=== PATIENT | female | born 1985 | race Caucasian/White ===

== ENCOUNTER 2017-12-08 14:04 | Inpatient (IN) | payer OTHER ==
[2017-12-08 15:14] LABS: PLATELET COUNT 97 10^3/uL (150-400)
[2017-12-08] MEDS ORDERED: BETAMETHASONE IM SYRINGE IM ONE (15:35)
[2017-12-08] MEDS ORDERED: MISOPROSTOL 200 MCG TAB PO PRN (16:44)
[2017-12-08] MEDS ORDERED: EPSOM SALT 454 GM TP PRN (16:44)
[2017-12-08] MEDS ORDERED: OXYTOCIN 20 UNIT in LR 1,000 ML IV PRN (16:44)
[2017-12-08] MEDS ORDERED: TERBUTALINE SULFATE 1 MG/ML VIAL IV PRN (16:44)
[2017-12-08] MEDS ORDERED: AMMONIA AROMATIC 1 EACH AMP IH PRN (16:44)
[2017-12-08] MEDS ORDERED: OLIVE OIL 118 ML BTL MISC PRN (16:44)
[2017-12-08] MEDS ORDERED: LR 500 ML IV PRN (16:48)
[2017-12-08] MEDS ORDERED: OLIVE OIL 118 ML BTL ONE (16:57)
[2017-12-08] MEDS ORDERED: LIDOCAINE 1% 300 MG/30 ML SDV ONE (16:57)
[2017-12-08] MEDS ORDERED: AMMONIA AROMATIC 1 EACH AMP IH ONE (16:58)
[2017-12-08] MEDS ORDERED: OXYTOCIN 10 UNIT/ML VIAL ONE (16:58)
[2017-12-08] MEDS ORDERED: TERBUTALINE SULFATE 1 MG/ML VIAL ONE (16:58)
[2017-12-08] MEDS ORDERED: MISOPROSTOL 200 MCG TAB ONE (16:58)
--- NOTE | 2017-12-08 16:59 | PDANEPAE ---
ANE Past Medical History - Cardiovascular History Hx Hypertension: No Hx Arrhythmias: No Hx Chest Pain: No Hx Coronary Artery / Peripheral Vascular Disease: No Hx CHF / Valvular Disease: No Hx Palpitations: No - Pulmonary History Hx COPD: No Hx Asthma/Reactive Airway Disease: No Hx Recent Upper Respiratory Infection: No Hx Oxygen in Use at Home: No Hx Sleep Apnea: No - Endocrine History Hx Diabetes: No Hypothyroid: No Hyperthyroid: No Obesity: no - Chronic Pain History Chronic Pain: No ANE Review of Systems Review of Systems: - Exercise capacity METS (RN): 5 METS ANE Patient History - Allergies Allergies/Adverse Reactions: Penicillins Allergy (Verified 05/29/14 18:15) - Anes Hx Anes Hx: no prior problems - Smoking Hx Smoking Status: Never smoked Marijuana use: No - Alcohol Use Alcohol Use: None - Family Anes Hx Family Anes Hx: neg - N/A ANE Labs/Vital Signs - Labs Result Diagrams: 12/08/17 14:35 - Vital Signs Height: 160.02 cm Weight: 60.781 kg ANE Physical Exam - Airway Neck exam: FROM Mallampati Score: Class 1 Mouth exam: normal dental/mouth exam - Pulmonary Pulmonary: no respiratory distress, no rales or rhonchi, clear to auscultation - Cardiovascular Cardiovascular: regular rate and rhythym, no murmur, rub, or gallop - ASA Status ASA Status: II ANE Anesthesia Plan Anesthesia Plan: epidural Total IV Anesthesia: No
[2017-12-08] MEDS ORDERED: OXYTOCIN 30 UNIT in NS 500 ML IV SCH (17:00)
[2017-12-08] MEDS ORDERED: LR 500 ML IV SCH (17:00)
[2017-12-08] MEDS ORDERED: fentaNYL 100 MCG/2 ML INJ ONE (17:02)
[2017-12-08] MEDS ORDERED: PHENYLEPHRINE HCL 100 MCG/ML SYR ONE (17:03)
[2017-12-08] MEDS: LR 1,000 ML IV PRN (17:09)
[2017-12-08] MEDS: CLINDAMYCIN 900 MG/DEXTROSE 50 ML IV SCH (17:13)
--- NOTE | 2017-12-08 17:27 | GHP ---
[f rep st] PREOP HISTORY AND PHYSICAL DATE OF ADMISSION: 12/08/2017 ADMITTING DIAGNOSIS: Intrauterine at 36-4/7 weeks' gestation with preeclampsia with severe features for induction of labor. HISTORY OF PRESENT ILLNESS: Patient is a 32-year-old 2, para 1-0-0-1, with a last menstrual period of 04/05/2017, and an EDC of 01/01/2018, which was confirmed by an 8-week ultrasound. She has had good care at [facility] since registration at 8 weeks' gestation. Her [facility] care is complicated by a history of severe preeclampsia, partial abruption at 38 weeks. The patie nt also had a hemorrhage that did not require a blood transfusion with that delivery. She has been on a baby aspirin this and been watched very carefully for signs and symptoms of preeclampsia. She was seen in the office on the at 36 and 3. Patient said she was not feeling very well. She had slight increased edema, was feeling dehydrated and tired, had trace protein on a urine dip and she had preeclampsia labs checked as a precaution. Significant findings in those labs were a platelet count of 100 and a uric acid of 9.0. Patient had a first trimester platelet count of 150 and had not had followup platelets done in this , so possible gestational thrombocytope josefa versus severe preeclampsia with HELLP syndrome. Patient was given precautions and had repeat lab s drawn on the and her platelets decreased to a count of 85. Uric acid remained elevated at 8.9 . Everything else remained stable. Patient was called and told to come to labor and delivery for ev aluation. Upon evaluation, patient reports feeling headaches, some episodes of scotomata, and overal l not feeling great. She has had good movement. No leakage of fluid. Mild contractions. Upo n presentation to labor and delivery, she had elevated blood pressures 148/92, 187/93. assessm ent was normal category 1. heart tones were in the 130s, reactive. Moderate variability categ ory 1. She had irregular contractions. Cervix on exam was 2, 80%, -2. PAST OBSTETRICAL HISTORY: In September 2015, she presented to labor and delivery at 38 weeks with heav y bleeding, suspected abruption. Patient was found to have severe preeclampsia at that time. She wa s augmented, had a spontaneous vaginal delivery and a hemorrhage. She was given medicatio ns and she responded well. She was treated with magnesium for 24 hours postop and did well. That wa s her only other . PAST GYNECOLOGICAL HISTORY: She had a normal menstrual triad with menarche at age 11, intervals ever y 26 days, length of 4 days and were regular. Last menstrual period of 03/26/2017, and they were try ing. SIGNIFICANT PAST MEDICAL HISTORY: None. PAST SURGICAL HISTORY: [place] teeth extraction and in 2003 she had a left breast fibroadenoma remove d and in 2014 a left breast biopsy. ALLERGIES: She is allergic to penicillin. MEDICATIONS: Include baby aspirin, vitamins. LABORATORY DATA: She is O-positive. Antibody negative. RPR nonreactive. Rubella immune. Hepatiti s negative. HIV negative. Baseline total protein was 371 on a 24-hour urine collection. Pap was no rmal. Gonorrhea and chlamydia normal. 1-hour GTT 92. GBS is pending. SOCIAL HISTORY: She is . She lives with her and her son. She works as a CPA. She d enies tobacco, alcohol, and drug use. FAMILY HISTORY: Maternal grandmother had chronic hypertension, thyroid dysfunction, melanoma. Pater nal grandfather also had skin and prostate cancer. Maternal grandmother has arthritis. Mother had k idney stones and that is all. REVIEW OF SYSTEMS: Currently negative except for pertinent positives as above in HPI. OBJECTIVE: VITAL SIGNS: Elevated blood pressure is 187/93, 148/92. GENERAL: Well-developed, well- nourished gravid female in no acute distress. LUNGS: Clear to auscultation bilaterally. HEART: Reg ular rate and rhythm with no murmur. ABDOMEN: Soft, gravid, nontender, nondistended. PELVIC: Feta l heart tones are 140s, reactive, moderate variability, category 1 contractions irregularly. Cervix is 2, 80%, -2 and cephalic. LABORATORY DATA: Repeat CBC today: White count 8.6, hemoglobin 13, hematocrit 39.5, platelets 97. No edema, DTRs are 2+, 2+. ASSESSMENT/PLAN: 32-year-old 2, para 1-0-0-1, at 36-4/7 weeks' gestation with preeclampsia w ith severe features. Patient is having an assessment with Maternal Medicine consultation as we speak. She is having an ultrasound for estimated weight and amniotic fluid index. Patient huerta s received a dose of betamethasone for lung maturity and we have an Anesthesia consultation pen ryan because patient will want an epidural prior to induction and because of her low platelet count, we want to have them have an opportunity to discuss this with her and the plan would be to proceed wi th induction of labor for preeclampsia with severe features and likely she will need magnesium postpa rtum. /[id number]/MODL
[2017-12-08] MEDS ORDERED: PHENYLEPHRINE HCL 100 MCG/ML SYR IVP PRN (17:47)
[2017-12-08] MEDS ORDERED: ONDANSETRON 4 MG/2 ML VIAL IVP PRN (17:47)
[2017-12-08] MEDS ORDERED: NALOXONE HCL 0.4 MG/ML INJ IVP PRN (17:47)
[2017-12-08] MEDS ORDERED: METOCLOPRAMIDE 10 MG/2 ML VIAL IVP PRN (17:47)
--- NOTE | 2017-12-08 17:47 | PREANESOB ---
Obstetric Pre-Anesthesia Info - General Info NPO Start Time: 17:46 : 2 Para: 0 VALERY: 01/01/18 Gestational Age: 36 week(s) and 4 day(s) - Info Monitors: External FHR Pattern: Reassuring - Labor Status PIH: Moderate Magnesium Sulfate in Use: No Indications for Labor Analgesia: BP Control, Induction of Labor, Pain Control Labor Epidural: Yes Anesthesia Allergies/Adverse Reactions: Allergy/AdvReac Type Severity Reaction Status Date / Time Penicillins Allergy Verified 05/29/14 18:15 Home Medications: Medication Instructions Recorded Ferrous Sulfate [Ferrous Sulf 325 325 mg PO BID #0 tab 10/21/15 MG (*)] Ibuprofen [Motrin (*)] 600 mg PO Q6 PRN #0 tab 10/21/15 Vit27&Calcium/Iron/FA 1 each PO DAILY #0 tab 10/21/15 [ Rx 1 Tablet (RX)] Visit Medications: Generic Name Dose Route Start Last Admin Trade Name Freq PRN Reason Stop Dose Admin Ammonia (Aromatic Spirit) 1 each 12/08/17 16:44 Ammonia Aromatic IH 12/18/17 16:43 ONCE PRN Fainting Lactated Ringer's 1,000 mls @ 0 mls/hr 12/08/17 16:44 12/08/17 17:09 Lr IV 12/09/17 16:43 1,000 mls PRN PRN Administration SEE PROTOCOL CONDITIONS Protocol Per Protocol Oxytocin 20 unit/ Lactated 1,002 mls @ 150 mls/hr 12/08/17 16:44 Ringer's IV PRN PRN Post- bleeding Clindamycin Phosphate/Dextrose 50 mls @ 100 mls/hr 12/08/17 17:30 12/08/17 17 :13 Cleocin 900 Mg (Premix) IV 01/07/18 17:29 50 mls Q8H EDER Administration Protocol Lactated Ringer's 500 mls @ 500 mls/hr 12/08/17 16:48 Lr IV 12/09/17 16:48 PRN PRN Maternal Hypotension Oxytocin 30 unit/ Sodium 503 mls @ 0 mls/hr 12/08/17 17:00 12/08/17 17:09 Chloride IV 06/06/18 16:59 503 mls CONT EDER Administration Protocol Per Protocol Lactated Ringer's 500 mls @ 0 mls/hr 12/08/17 17:00 Lr IV 06/06/18 16:59 CONT EDER As Directed Ibuprofen 600 mg 12/08/17 16:44 Motrin PO 06/06/18 16:43 Q6HRS PRN post , inflammation Magnesium Sulfate 454 gm 12/08/17 16:44 Epsom Salt TP 06/06/18 16:43 Q1H PRN perineal discomfort Misoprostol 800 - 1,000 mcg 12/08/17 16:44 Cytotec PO ONCE PRN Vaginal Atony/Bleeding [place] Oil 118 ml 12/08/17 16:44 Sweet Oil MISC 06/06/18 16:43 ONCE PRN perineal massage Terbutaline Sulfate 0.25 mg 12/08/17 16:44 Brethine IV 06/06/18 16:43 ONCE PRN Tachysystole Discontinued Medications Generic Name Dose Route Start Last Admin Trade Name Freq PRN Reason Stop Dose Admin Ammonia (Aromatic Spirit) Confirm 12/08/17 16:58 Ammonia Aromatic Administered 12/08/17 16:59 Dose 1 each IH .STK-MED ONE Betamethasone Acet/Betameth SodPhos 12 mg 12/08/17 15:35 12/08/17 15:47 Celestone Im Syringe IM 12/08/17 15:36 12 mg ONCE ONE Administration Ephedrine Sulfate Confirm 12/08/17 17:03 Ephedrine Sulfate Administered 12/08/17 17:04 Dose 50 mg .ROUTE .STK-MED ONE Fentanyl Confirm 12/08/17 17:02 Sublimaze Administered 12/08/17 17:03 Dose 100 mcg .ROUTE .STK-MED ONE Lidocaine HCl Confirm 12/08/17 16:57 Lidocaine Hcl 1% Administered 12/08/17 16:58 Dose 300 mg .ROUTE .STK-MED ONE Misoprostol Confirm 12/08/17 16:58 Cytotec Administered 12/08/17 16:59 Dose 1,000 mcg .ROUTE .STK-MED ONE [place] Oil Confirm 12/08/17 16:57 Sweet Oil Administered 12/08/17 16:58 Dose 118 ml .ROUTE .STK-MED ONE Oxytocin Confirm 12/08/17 16:58 Pitocin Administered 12/08/17 16:59 Dose 40 unit .ROUTE .STK-MED ONE Phenylephrine HCl Confirm 03/15/18 17:03 Neosynephrine Administered 12/08/17 17:04 Dose 1,000 mcg .ROUTE .STK-MED ONE Terbutaline Sulfate Confirm 12/08/17 16:58 Brethine Administered 12/08/17 16:59 Dose 1 mg .ROUTE .STK-MED ONE - Anesthesia History Response to Local Anesthetics: Normal Anesthesia & Operative History: No Prior Problems Family Anesthesia History: Negative - Social History Substance Use/Abuse: Denies - Vital Signs Height/Weight (Nursing): Height 160.02 cm Weight 60.781 kg - Focused Exam Neck exam: FROM Mallampati Score: Class 1 Mouth exam: normal dental/mouth exam Pulmonary: no respiratory distress, no rales or rhonchi, clear to auscultation Cardiovascular: regular rate and rhythym, no murmur, rub, or gallop Labs: 12/08/17 14:35 Patient ABO/Rh O POSITIVE 12/08/17 14:35 - Plan Consent Signed and on Chart: Yes Patient/Guardian Understands and Agrees to Plan: Yes Urgent/Emergent Case: Edmond clay completed preop but documented later for safe timely pt care
[2017-12-08] MEDS ORDERED: fentaNYL 2MCG/ML/BUP 0.1% RTU 100 ML EP SCH (18:00)
[2017-12-08] MEDS ORDERED: fentaNYL 200 MCG, BUPIVACAINE 0.5% 20 ML in NS 100 ML EP SCH (18:00)
[2017-12-08] MEDS ORDERED: MAGNESIUM SULF 4 GM/WATER 100 ML IV ONE (18:55)
[2017-12-08] MEDS ORDERED: CALCIUM GLUC 10% 1 GM/10 ML VIAL IVP PRN (18:55)
[2017-12-08 19:31] LABS: PLATELET COUNT 102 10^3/uL (150-400)
[2017-12-08] MEDS: Mag Sulf 500 ML IV SCH (19:59)
--- NOTE | 2017-12-08 20:28 | OBPROG ---
Labor Progress Note Assessment/Plan: Assessment: 32 y/o @ 36 4/7 weeks IOL secondary pre-eclampsia with severe features on MgSo4 Plan: Arom clear fluid, continue pitocin. Labs are stable platelets 102, creatine 0.8. Continue Mgso4 @ 2 g/hour and will carefully monitor UOP. 12/08/17 20:28 Subjective/Intrapartum Course: 12/08/17 20:24 Pt remains comfortable with her epidural not feeling contractions. She was slightly nauseous with the MgSo4 bolus but is feeling better now. Denies CARNEY, scotomata, or other pre-eclampsia symptoms. Objective: 12/08/17 19:05 12/08/17 19:05 Patient ABO/Rh O POSITIVE 12/08/17 14:35 Uric Acid 9.1 mg/dL (2.5-6.8) H 12/08/17 19:05 Total Bilirubin 0.4 mg/dL (0.1-1.4) 12/08/17 19:05 Conjugated Bilirubin 0.3 mg/dL (0.0-0.5) 12/08/17 19:05 Unconjugated Bilirubin 0.1 mg/dL (0.0-1.1) 12/08/17 19:05 AST 36 IU/L (14-46) 12/08/17 19:05 ALT 33 IU/L (9-52) 12/08/17 19:05 Lactate Dehydrogenase 448 IU/L (313-618) 12/08/17 19:05 - SVE Dilation (cm): 4 Effacement (%): 80 Station: -1 Membranes: AROM Amniotic Fluid Color: Clear - Contraction Pattern Assessment Current Contraction Pattern: Regular (Q 3-4) - FHR Assessment Rodriguez FHR (bpm): 140 FHR Pattern Variability: Moderate FHR Category: 1 - Procedures Non-surgical Procedures: Amniotomy - AP Antepartum Course: 12/08/17 20:26 H/o pre-eclampsia with placental abruption and PPH. Delivered @ 38 weeks Oxytocin Orders Assessment - Pre-Induction/Augmentation Assessment Gestational Age: 36 week(s) and 4 day(s) ICD10 Worksheet Patient Problems: Problems Problem Status Onset Pre-eclampsia during in third trimester, antepartum Acute
[2017-12-09] MEDS ORDERED: HYDROCODONE/APAP 5/325 TAB PO PRN (00:15)
[2017-12-09] MEDS ORDERED: HYDROCORTISONE 0.5% CREAM TP PRN (00:15)
[2017-12-09] MEDS ORDERED: ACETAMINOPHEN 325 MG TAB PO PRN (00:15)
[2017-12-09] MEDS ORDERED: SIMETHICONE 80 MG TAB CHEW PO PRN (00:15)
--- NOTE | 2017-12-09 00:19 | OBDEL ---
Info Type: Vaginal Presentation at Delivery: Vertex L&D Analgesia/Anesthesia Type: Epidural GBS+: Yes (unknown 36 weeks) Antibiotic Used for + GBS: Clindamycin Intrapartum Medications: Generic Name Dose Route Start Last Admin Trade Name Freq PRN Reason Stop Dose Admin Lactated Ringer's 1,000 mls @ 0 mls/hr 12/08/17 16:44 12/08/17 17:09 Lr IV 12/09/17 16:43 1,000 mls PRN PRN Administration SEE PROTOCOL CONDITIONS Protocol Per Protocol Clindamycin Phosphate/Dextrose 50 mls @ 100 mls/hr 12/08/17 17:30 12/08/17 17 :13 Cleocin 900 Mg (Premix) IV 01/07/18 17:29 50 mls Q8H EDER Administration Protocol Oxytocin 30 unit/ Sodium 503 mls @ 0 mls/hr 12/08/17 17:00 12/08/17 17:09 Chloride IV 06/06/18 16:59 503 mls CONT EDER Administration Protocol Per Protocol Magnesium Sulfate 500 mls @ 50 mls/hr 12/08/17 19:00 12/08/17 19:59 Magnesium Sulfate 20 Gm/ 500 Ml (Premix) IV 06/06/18 18:59 500 mls CONT EDER Administration Discontinued Medications Generic Name Dose Route Start Last Admin Trade Name Melecio PRN Reason Stop Dose Admin Betamethasone Acet/Betameth SodPhos 12 mg 12/08/17 15:35 12/08/17 15:47 Celestone Im Syringe IM 12/08/17 15:36 12 mg ONCE ONE Administration Magnesium Sulfate 100 mls @ 200 mls/hr 12/08/17 18:55 12/08/17 19:24 Magnesium Sulf 4 Gm (Premix) IV 12/08/17 19:24 100 mls ONCE ONE Administration - Infant Care Provider Coordinator Of Library Services/VOIP NETWORK TECHNICIAN: Elvia Mariano - Hospital Course Intrapartum: 12/08/17 20:24 Pt remains comfortable with her epidural not feeling contractions. She was slightly nauseous with the MgSo4 bolus but is feeling better now. Denies CARNEY, scotomata, or other pre-eclampsia symptoms. Indications for Delivery: Preeclampsia Severe Vaginal Delivery - Delivery Provider Delivery Physician/CNM: Patricia Ricardo - Labor and Delivery Onset of Contractions Date: 12/08/17 Onset of Contractions Time: 21:43 Onset of Contractions Type: Induced Rupture of Membranes Date: 12/08/17 Rupture of Membranes Time: 20:21 Rupture of Membranes Type: Artificial Amniotic Fluid Color: Clear Dilation Complete Date: 12/08/17 Dilation Complete Time: 23:26 Placenta Delivery Date: 12/08/17 Placenta Delivery Time: 23:39 Total Hours of Labor: 1 Non-surgical Procedures: Amniotomy Laceration: 1st Degree Repair: 3-0, Vicryl Vaginal Sponge Count Correct: Yes Vaginal Needle Count Correct: Yes Vaginal Sweep Performed: Yes EBL: 200 Delivery Events: Nuchal Cord (loose x 2) - Medications Labor Augmentation/Induction Methods Used: Pitocin Labor Augmentation/Induction Indication: Other (Specify) (pre eclampsia with severe features @ 36 weeks) [place] Data VALERY: 01/01/18 Gestational Age: 36 week(s) and 5 day(s) Rodriguez Delivery Date: 12/08/17 Delivery Time: 23:34 Sex of : Male Score (1 Min): 8 Score (5 Min): 9 ICD10 Worksheet Patient Problems: Problems Problem Status Onset (spontaneous vaginal delivery) Acute Pre-eclampsia during in third trimester, antepartum Acute - ICD10 Problem Qualifiers (1) (spontaneous vaginal delivery)
--- NOTE | 2017-12-09 00:37 | POSTANESTH ---
Post Anesthetic Evaluation Cardiovascular Status: Normal, Stable Respiratory Status: Normal, Stable Level of Consciousness/Mental Status: Can Participate in Eval Pain Control: Adequate, Prn Tx Ordered Nausea/Vomiting Control: Adequate, Prn Tx Ordered Complications Possibly Related to Anesthesia: None Noted (epidural resolving normally, platelets adequate for removal of epid catheter (102k))
[2017-12-09] MEDS: LR 1,000 ML IV PRN (01:15)
[2017-12-09 01:58] LABS: PLATELET COUNT 92 10^3/uL (150-400)
[2017-12-09] MEDS ORDERED: BETAMETHASONE IM SYRINGE IM ONE (03:45)
[2017-12-09] MEDS: Mag Sulf 500 ML IV SCH (05:31)
[2017-12-09 08:24] LABS: PLATELET COUNT 104 10^3/uL (150-400)
[2017-12-09] MEDS: IBUPROFEN 600 MG TAB PO PRN ×3 (08:33→22:47)
--- NOTE | 2017-12-09 10:33 | OBPP ---
Progress Note Assessment/Plan: Assessment: 32 yo G2now P2 11 hours s/p - in the setting of induction for preeclampsia with severe features. Good urine output. No signs of magnesium toxicity. PIH labs stable. Plan: Will continue Magsulfate for 24 hours after delivery. Will stop serial PIH labs, as stable. NPO except for sips of water and ice chips while on Magsulfate. 12/09/17 10:27 Subjective/ Course: 12/09/17 10:33 Pt doing well, resting comfortably. Does have some blurry vision and cramping. No chest pain, no dyspnea. Objective: 12/09/17 07:40 12/09/17 07:40 Patient ABO/Rh O POSITIVE 12/08/17 14:35 Uric Acid 8.5 mg/dL (2.5-6.8) H 12/09/17 07:40 Total Bilirubin 0.4 mg/dL (0.1-1.4) 12/09/17 07:40 Conjugated Bilirubin 0.2 mg/dL (0.0-0.5) 12/09/17 07:40 Unconjugated Bilirubin 0.2 mg/dL (0.0-1.1) 12/09/17 07:40 AST 34 IU/L (14-46) 12/09/17 07:40 ALT 34 IU/L (9-52) 12/09/17 07:40 Lactate Dehydrogenase 646 IU/L (313-618) H 12/09/17 07:40 gen - pleasant, NAD CV - RRR Chest - CTAB abd - soft, fundus firm and NT 6cm below umbilicus ext - 1+ edema BLE, 1+ DTRs, no clonus Uterine Position/Fundal Height: Umbilicus -3 Uterine Tone: Firm
[2017-12-09] MEDS: CLINDAMYCIN 900 MG/DEXTROSE 50 ML IV SCH (13:38)
--- NOTE | 2017-12-09 22:39 | OBPP ---
Progress Note Assessment/Plan: Assessment: 32 yo G2now P2 11 hours s/p - in the setting of induction for preeclampsia with severe features. Good urine output. No signs of magnesium toxicity. PIH labs stable. Plan: Will continue Magsulfate for 24 hours after delivery. Will stop serial PIH labs, as stable. NPO except for sips of water and ice chips while on Magsulfate. 12/09/17 10:27 12/09/17 22:39 32yo almost 24 hours s/p after IOL for preeclampsia with severe features. Mag level earlier this afternoon was 8.4 - was stopped for one hour, then restarted at 1gm/hour, and total fluids are running at 125ml/hour now. Urine output has decreased but is still adequate. Plan: DC Magsulfate at 2334 (24 hr s/p ), along with Payne catheter. May then resume a regular diet. Routine care. Subjective/ Course: 12/09/17 10:33 Pt doing well, resting comfortably. Does have some blurry vision and cramping. No chest pain, no dyspnea. 12/09/17 22:36 Doing well. Still feels magsulfate effects. This afternoon, felt very groggy, heavy and double vision. When Magsulfate was turned off for an hour, and then turned back on at 1gm/hour, felt a little better. No dyspnea, no chest pain. Still blurry vision. Is hungry. Objective: 12/09/17 07:40 12/09/17 07:40 Patient ABO/Rh O POSITIVE 12/08/17 14:35 Uric Acid 8.5 mg/dL (2.5-6.8) H 12/09/17 07:40 Total Bilirubin 0.4 mg/dL (0.1-1.4) 12/09/17 07:40 Conjugated Bilirubin 0.2 mg/dL (0.0-0.5) 12/09/17 07:40 Unconjugated Bilirubin 0.2 mg/dL (0.0-1.1) 12/09/17 07:40 AST 34 IU/L (14-46) 12/09/17 07:40 ALT 34 IU/L (9-52) 12/09/17 07:40 Lactate Dehydrogenase 646 IU/L (313-618) H 12/09/17 07:40 gen - pleasant, NAD, sitting up and baby CV - RRR chest - CTAB abd - soft, + BS, fundus firm u-5cm ext - SCDs on and running, 1+ pedal edema, no calf tenderness Urine output - per hour has varied from 50 to 300 earlier today. Most recently has been on the lower side Uterine Position/Fundal Height: Umbilicus -3 Uterine Tone: Firm
[2017-12-10] MEDS: IBUPROFEN 600 MG TAB PO PRN ×3 (05:42→17:15)
--- NOTE | 2017-12-10 08:20 | OBGCSDC ---
General Delivery Information - General Info : 2 Para: 1 Abortions: 0 Type: Vaginal L&D Analgesia/Anesthesia Type: Epidural Admission Date: 12/08/17 Labs: Patient ABO/Rh O POSITIVE 12/08/17 14:35 Hct 39.1 % (38.0-47.0) 12/09/17 07:40 - Hospital Course Antepartum: 12/08/17 20:26 H/o pre-eclampsia with placental abruption and PPH. Delivered @ 38 weeks Intrapartum: 12/08/17 20:24 Pt remains comfortable with her epidural not feeling contractions. She was slightly nauseous with the MgSo4 bolus but is feeling better now. Denies CARNEY, scotomata, or other pre-eclampsia symptoms. : Severe preeclampsia. Magnesium sulfate. Doing well post BP wnl 12/09/17 10:33 Pt doing well, resting comfortably. Does have some blurry vision and cramping. No chest pain, no dyspnea. 12/09/17 22:36 Doing well. Still feels magsulfate effects. This afternoon, felt very groggy, heavy and double vision. When Magsulfate was turned off for an hour, and then turned back on at 1gm/hour, felt a little better. No dyspnea, no chest pain. Still blurry vision. Is hungry. 12/10/17 08:17 Doing well. Denies difficulties. I feel better than the last delivery with magnesium sulfate. Vaginal - Delivery Provider Delivery Physician/CNM: Patricia Ricardo - Diagnosis Labor: Induced Rupture of Membranes Type: Artificial Amniotic Fluid Color: Clear Laceration: 1st Degree Repair: 3-0, Vicryl Delivery Events: Nuchal Cord (loose x 2) - Procedures Non-surgical Procedures: Amniotomy - Delivery Non-surgical Procedures: Amniotomy EBL: 200 Data VALERY: 01/01/18 Gestational Age: 36 week(s) and 6 day(s) Rodriguez Delivery Date: 12/08/17 Delivery Time: 23:34 Sex of : Male Weight (gm): 2702 g Score (1 Min): 8 Score (5 Min): 9
--- NOTE | 2017-12-10 08:20 | OBPP ---
Progress Note Assessment/Plan: Assessment: with pumping assistance vs wnl BP normotensive ff@u scant rubra lochia pain well managed voiding without difficulty denies PIH symptoms Plan:pp day 2 expectant management discharge tomorrow 12/10/17 08:18 Subjective/ Course: Severe preeclampsia. Magnesium sulfate. Doing well post BP wnl 12/09/17 10:33 Pt doing well, resting comfortably. Does have some blurry vision and cramping. No chest pain, no dyspnea. 12/09/17 22:36 Doing well. Still feels magsulfate effects. This afternoon, felt very groggy, heavy and double vision. When Magsulfate was turned off for an hour, and then turned back on at 1gm/hour, felt a little better. No dyspnea, no chest pain. Still blurry vision. Is hungry. 12/10/17 08:17 Doing well. Denies difficulties. I feel better than the last delivery with magnesium sulfate. Objective: 12/09/17 07:40 12/09/17 07:40 Patient ABO/Rh O POSITIVE 12/08/17 14:35 Uric Acid 8.5 mg/dL (2.5-6.8) H 12/09/17 07:40 Total Bilirubin 0.4 mg/dL (0.1-1.4) 12/09/17 07:40 Conjugated Bilirubin 0.2 mg/dL (0.0-0.5) 12/09/17 07:40 Unconjugated Bilirubin 0.2 mg/dL (0.0-1.1) 12/09/17 07:40 AST 34 IU/L (14-46) 12/09/17 07:40 ALT 34 IU/L (9-52) 12/09/17 07:40 Lactate Dehydrogenase 646 IU/L (313-618) H 12/09/17 07:40 Uterine Position/Fundal Height: At Umbilicus, Umbilicus -1 Physical Exam - Physical Exam General Appearance: WD/WN, alert, no apparent distress Abdomen: other (FF@u scanrt rubra lochia) DTR- Lower Extremities: Knee (R): 1+, Knee (L): 1+ (no clonus) Skin: normal color, warm/dry Neuro/Psych: no motor/sensory deficits, alert, normal mood/affect, oriented x 3
[2017-12-10] MEDS: DOCUSATE SODIUM 100 MG CAP PO PRN (09:10)
[2017-12-10 16:28] VITALS: O2SAT 95
[2017-12-10 21:29] VITALS: RESP 16
[2017-12-11] MEDS: IBUPROFEN 600 MG TAB PO PRN ×3 (01:03→12:53)
[2017-12-11] MEDS: DOCUSATE SODIUM 100 MG CAP PO PRN (01:04)
--- NOTE | 2017-12-11 10:31 | OBPP ---
Progress Note Assessment/Plan: Assessment: 32 yo G2now P2 11 hours s/p - in the setting of induction for preeclampsia with severe features. Good urine output. No signs of magnesium toxicity. PIH labs stable. Plan: Will continue Magsulfate for 24 hours after delivery. Will stop serial PIH labs, as stable. NPO except for sips of water and ice chips while on Magsulfate. 12/09/17 10:27 12/09/17 22:39 32yo almost 24 hours s/p after IOL for preeclampsia with severe features. Mag level earlier this afternoon was 8.4 - was stopped for one hour, then restarted at 1gm/hour, and total fluids are running at 125ml/hour now. Urine output has decreased but is still adequate. Plan: DC Magsulfate at 2334 (24 hr s/p ), along with Payne catheter. May then resume a regular diet. Routine care. 12/11/17 10:29 Assessment:PPD #2 s/p in setting of IOL for preeclampsia with severe features, s/p 24 hour magsulfate. Plan: dc home, reviewed pp instructions, including pp depression. See dc summary. Carol Bailey MD, FACOG [facility] Subjective/ Course: Severe preeclampsia. Magnesium sulfate. Doing well post BP wnl 12/09/17 10:33 Pt doing well, resting comfortably. Does have some blurry vision and cramping. No chest pain, no dyspnea. 12/09/17 22:36 Doing well. Still feels magsulfate effects. This afternoon, felt very groggy, heavy and double vision. When Magsulfate was turned off for an hour, and then turned back on at 1gm/hour, felt a little better. No dyspnea, no chest pain. Still blurry vision. Is hungry. 12/10/17 08:17 Doing well. Denies difficulties. I feel better than the last delivery with magnesium sulfate. 12/11/17 10:28 Doing well. Desires homegoing. No CARNEY, chest pain, dyspnea, vis changes. Voiding and ambulating well. going well. Objective: 12/09/17 07:40 12/09/17 07:40 Patient ABO/Rh O POSITIVE 12/08/17 14:35 Uric Acid 8.5 mg/dL (2.5-6.8) H 12/09/17 07:40 Total Bilirubin 0.4 mg/dL (0.1-1.4) 12/09/17 07:40 Conjugated Bilirubin 0.2 mg/dL (0.0-0.5) 12/09/17 07:40 Unconjugated Bilirubin 0.2 mg/dL (0.0-1.1) 12/09/17 07:40 AST 34 IU/L (14-46) 12/09/17 07:40 ALT 34 IU/L (9-52) 12/09/17 07:40 Lactate Dehydrogenase 646 IU/L (313-618) H 12/09/17 07:40 Temp Pulse Resp BP Pulse Ox 36.9 C 64 16 137/89 H 95 12/11/17 01:23 12/11/17 01:23 12/11/17 01:23 12/11/17 01:23 12/11/17 01:23 gen - pleasant female, NAD CV - RRR chest - CTAB abd - soft, NT, +BS, fundus firm at u-3 ext - trace edema, calves NT Uterine Position/Fundal Height: Umbilicus -3 Uterine Tone: Firm
--- NOTE | 2017-12-11 10:46 | OBGCSDC ---
General Delivery Information - General Info : 2 Para: 1 Abortions: 0 Type: Vaginal L&D Analgesia/Anesthesia Type: Epidural Admission Date: 12/08/17 Labs: Patient ABO/Rh O POSITIVE 12/08/17 14:35 Hct 39.1 % (38.0-47.0) 12/09/17 07:40 - Hospital Course Antepartum: 12/08/17 20:26 H/o pre-eclampsia with placental abruption and PPH. Delivered @ 38 weeks Intrapartum: 12/08/17 20:24 Pt remains comfortable with her epidural not feeling contractions. She was slightly nauseous with the MgSo4 bolus but is feeling better now. Denies CARNEY, scotomata, or other pre-eclampsia symptoms. : Severe preeclampsia. Magnesium sulfate. Doing well post BP wnl 12/09/17 10:33 Pt doing well, resting comfortably. Does have some blurry vision and cramping. No chest pain, no dyspnea. 12/09/17 22:36 Doing well. Still feels magsulfate effects. This afternoon, felt very groggy, heavy and double vision. When Magsulfate was turned off for an hour, and then turned back on at 1gm/hour, felt a little better. No dyspnea, no chest pain. Still blurry vision. Is hungry. 12/10/17 08:17 Doing well. Denies difficulties. I feel better than the last delivery with magnesium sulfate. 12/11/17 10:28 Doing well. Desires homegoing. No CARNEY, chest pain, dyspnea, vis changes. Voiding and ambulating well. going well. Vaginal - Delivery Provider Delivery Physician/CNM: Patricia Ricardo - Diagnosis Labor: Induced Rupture of Membranes Type: Artificial Amniotic Fluid Color: Clear Laceration: 1st Degree Repair: 3-0, Vicryl Delivery Events: Nuchal Cord (loose x 2) - Procedures Non-surgical Procedures: Amniotomy - Delivery Non-surgical Procedures: Amniotomy EBL: 200 [place] Data VALERY: 01/01/18 Gestational Age: 37 week(s) and 0 day(s) Rodriguez Delivery Date: 12/08/17 Delivery Time: 23:34 Sex of Infant: Male [place] Weight (gm): 2702 g Score (1 Min): 8 Score (5 Min): 9 Discharge Information - Discharge Information Condition: Good Instruction/Follow Up: See Instruction Sheet (standard vaginal delivery instructions), Four Weeks (therapy), Six Weeks (regular check)
[2017-12-11 11:52] VITALS: BP 123/83; PULSE 59
[2017-12-11 11:53] VITALS: TEMP 98.6
== END 2017-12-11 13:15 | disposition home or self-care (01) | DRG 775 ==
LOC: FLD 14:04 → FOB 12-10 11:12
PROVIDERS: ADMIT Obstetrics & Gynecology; ATTEND Obstetrics & Gynecology
DX: O14.14 Severe pre-eclampsia complicating childbirth (principal); Z37.0 Single live birth; Z3A.36 36 weeks gestation of pregnancy; O70.0 First degree perineal laceration during delivery; O69.82X0 Labor and delivery complicated by other cord entanglement, without compression, not applicable or unspecified
CPT/HCPCS: J0610; J0702; J2370; J2590; J3010; J3105; J3475